=== PATIENT | female | born 1995 ===

== ENCOUNTER 2018-03-04 00:43 | Emergency (ER) | payer BC ==
[2018-03-04 01:03] VITALS: BP 113/74; PULSE 62; RESP 18; TEMP 98; O2SAT 100
--- NOTE | 2018-03-04 02:04 | ED PDOC ---
HPI: Abdomen Time Seen by Provider: 03/04/18 00:56 Chief Complaint (Nursing): Abdominal Pain Chief Complaint (Provider): abdominal pain History Per: Patient History/Exam Limitations: no limitations Onset/Duration Of Symptoms: Days (x3 months) Current Symptoms Are (Timing): Still Present Location Of Pain/Discomfort: Other (lower) Quality Of Discomfort: Cramping Associated Symptoms: Nausea. denies: Fever, Chills, Vomiting, Diarrhea, Loss Of Appetite, Urinary Symptoms Additional Complaint(s): Gloria Bledsoe is a 22 year old female, with a past medical history of cholecystectomy, who presents to the emergency department complaining of a crampy lower abdominal pain associated with nausea onset for x3 months. Patient states pain is similar to menstrual cramps. She reports her LMP was x2 weeks ago and has a control implant. She denies any fever, chills, vomiting, diarrhea, loss of appetite, vaginal bleeding, vaginal discharge or urinary symptoms. No further medical complaints. PMD: None provided. Abnormal Vaginal Bleeding: No Last Menstral Period: x2 weeks ago Past Medical History Reviewed: Historical Data, Nursing Documentation, Vital Signs Vital Signs: Last Vital Signs Temp 98 F 03/04/18 01:00 Pulse 62 03/04/18 01:00 Resp 18 03/04/18 01:00 BP 113/74 03/04/18 01:00 Pulse Ox 100 03/04/18 02:05 - Medical History PMH: Migraine - Surgical History Surgical History: Cholecystectomy - Family History Family History: States: Unknown Family Hx - Immunization History Hx Tetanus Toxoid Vaccination: Yes Hx Influenza Vaccination: Yes Hx Pneumococcal Vaccination: No - Home Medications Home Medications: Ambulatory Orders Medication Instructions Recorded Acetaminophen [Tylenol] 650 mg PO Q4 PRN #0 tab 04/24/14 Multivitamin and [id number] 1 tab PO DAILY #30 tab 04/24/14 [] No Known Home Med 08/21/16 - Allergies Allergies/Adverse Reactions: Allergies Allergy/AdvReac Type Severity Reaction Status Date / Time No Known Allergies Allergy Verified 08/21/16 17:33 Review of Systems ROS Statement: Except As Marked, All Systems Reviewed And Found Negative Constitutional: Negative for: Fever, Chills Gastrointestinal: Positive for: Nausea, Abdominal Pain (lower). Negative for: Vomiting, Diarrhea Genitourinary Female: Negative for: Dysuria, Frequency, Vaginal Discharge, Vaginal Bleeding Physical Exam - Reviewed Nursing Documentation Reviewed: Yes Vital Signs Reviewed: Yes - Physical Exam Appears: Positive for: Well, Non-toxic, No Acute Distress Head Exam: Positive for: ATRAUMATIC, NORMAL INSPECTION, NORMOCEPHALIC Skin: Positive for: Normal Color, Warm, DRY Eye Exam: Positive for: EOMI, Normal appearance, PERRL ENT: Positive for: Normal ENT Inspection Neck: Positive for: Normal, Painless ROM Cardiovascular/Chest: Positive for: Regular Rate, Rhythm Respiratory: Positive for: CNT, Normal Breath Sounds Gastrointestinal/Abdominal: Positive for: Normal Exam, Soft. Negative for: Tenderness Pelvic Exam: Positive for: External Exam Normal, Speculum Exam Normal, Bimanual Exam Normal, No Cerv. Motion Tender, Active Bleeding, Other (WELDING ENGINEER was present during the entire exam. ) Back: Positive for: Normal Inspection Extremity: Positive for: Normal ROM Neurologic/Psych: Positive for: Alert, Oriented - ECG O2 Sat by Pulse Oximetry: 100 (RA) Pulse Ox Interpretation: Normal Medical Decision Making Medical Decision Making: Time: 00:56 Initial Impression: Pelvic pain Initial Plan: --Urine dipstick --Urine --Reevaluation Uhcg (-) Udip (-) nitartes/leuks 02:00 Pelvic exam performed and was normal. Patient instructed to follow-up with her neighborhood planner in 1-2 days without fail. Return to the emergency room at any time for any new or worsening symptoms. Patient states she fully agrees with and understands discharge instructions. States that she agrees with the plan and disposition. Verbalized and repeated discharge instructions and plan. I have given the patient opportunity to ask any additional questions. ----- Scribe Attestation: Documented by Supa Dickinson, acting as a scribe for Jesica Bledsoe PA-C. Provider Scribe Attestation: All medical record entries made by the Scribe were at my direction and personally dictated by me. I have reviewed the chart and agree that the record accurately reflects my personal performance of the history, physical exam, medical decision making, and the department course for this patient. I have also personally directed, reviewed, and agree with the discharge instructions and disposition. Disposition - Clinical Impression Clinical Impression: Pelvic pain - Patient ED Disposition Is Patient to be Admitted: No Counseled Patient/Family Regarding: Studies Performed, Diagnosis, Need For Followup - Disposition Disposition: Routine/Home Disposition Time: 02:00 Condition: STABLE Additional Instructions: Thank you for letting us take care of you today. You were treated for pelvic pain. The emergency medical care you received today was directed at your acute symptoms. Return to the Emergency Department if your symptoms worsen, do not improve, or if you have any other problems. Please contact your neighborhood planner in 2 days for re-evaluation and follow up. Bring any paperwork you were given at discharge with you along with any medications you are taking to your follow up visit. Our treatment cannot replace ongoing medical care by a primary care provider (PCP) outside of the emergency department. Thank you for allowing the [facility] team to be part of your care today. Instructions: Chronic Pelvic Pain (DC) Forms: [employer] (Telugu)
== END 2018-03-04 02:15 | disposition home or self-care (01) ==
LOC: H.ER 00:43
DX: R10.2 Pelvic and perineal pain (principal)

== ENCOUNTER 2018-03-29 23:08 | Emergency (ER) | payer BC ==
[2018-03-29 23:20] VITALS: BP 123/77; PULSE 65; RESP 18; TEMP 98.7; O2SAT 96
--- NOTE | 2018-03-30 00:19 | ED PDOC ---
HPI: Allergic Reaction Time Seen by Provider: 03/29/18 23:26 Chief Complaint (Nursing): Abnormal Skin Integrity Chief Complaint (Provider): rash History Per: Patient History/Exam Limitations: no limitations Onset/Duration Of Symptoms: Days (x10) Current Symptoms Are (Timing): Still Present Possible Cause: Unknown Associated Symptoms: Skin Rash Additional Complaint(s): Patient reports acute onset of scattered rash to her abdomen, breasts and groin , ongoing for 10 days. She reports associated itchiness and redness. Otherwise: (-) fever, (-) chills, (-) URI, (-) facial/tongue/lip swelling, (-) SOB, (-) tick bite, (-) new medicine/foods, (-) changes to soap/lotions, (-) environmental factors - she did not visit the park. Past Medical History Reviewed: Historical Data, Nursing Documentation, Vital Signs Vital Signs: Last Vital Signs Temp 98.7 F 03/29/18 23:18 Pulse 65 03/29/18 23:18 Resp 18 03/29/18 23:18 BP 123/77 03/29/18 23:18 Pulse Ox 96 03/29/18 23:18 - Medical History PMH: Migraine - Surgical History Surgical History: Cholecystectomy - Family History Family History: States: Unknown Family Hx - Social History Current smoker - smoking cessation education provided: No Ex-Smoker (has not smoked in the last 12 months): Yes Alcohol: > 2 Drinks/Day Drugs: Cannabis, Cocaine - Immunization History Hx Tetanus Toxoid Vaccination: Yes Hx Influenza Vaccination: Yes Hx Pneumococcal Vaccination: No - Home Medications Home Medications: Ambulatory Orders Medication Instructions Recorded Acetaminophen [Tylenol] 650 mg PO Q4 PRN #0 tab 04/24/14 Multivitamin and [id number] 1 tab PO DAILY #30 tab 04/24/14 [] Cetirizine HCl [Zyrtec] 10 mg PO DAILY #30 capsule 03/30/18 Famotidine [Pepcid] 40 mg PO DAILY #20 tablet 03/30/18 Methylprednisolone [Medrol Dose 4 mg PO DAILY #21 mg 03/30/18 Pack (21 tabs)] - Allergies Allergies/Adverse Reactions: Allergies Allergy/AdvReac Type Severity Reaction Status Date / Time No Known Allergies Allergy Verified 08/21/16 17:33 Review of Systems ROS Statement: Except As Marked, All Systems Reviewed And Found Negative Constitutional: Negative for: Fever, Chills Genitourinary Female: Negative for: Dysuria, Hematuria Skin: Positive for: Rash (abdomen, breast and groin with itchiness and redness) Physical Exam - Reviewed Nursing Documentation Reviewed: Yes Vital Signs Reviewed: Yes - Physical Exam Comments: GENERAL APPEARANCE: Patient is awake, alert, oriented x 3, in no acute distress SKIN: (+) several erythematous, oval-shaped, flat lesions of varying sizes to abdomen, chest and groin. Otherwise (-) excoriations, (-) drainage, (-) crusting of lesions is present. HENT: (-) conjunctival injection, (-) chemosis. Oropharynx: clear (-) tongue or lip swelling, (-) tonsillar exudates, (-) erythema. Airway: patent (-) stridor, (-) hoarseness. Mucous membranes moist. Nares: Patent (-) rhinorrhea. NECK: (-) lymphadenopathy, (-) tenderness. CARDIOVASCULAR: Normal rate and rhythm. (-) murmur, (-) gallop. CHEST: (-) rales, (-) wheezing, (-) dyspnea, (-) stridor. Breath sounds equal bilaterally. ABDOMEN: Soft. (-) tenderness, (-) distention, (-) HSM. NEURO: Mental status: Patient is alert, oriented, and with normal strength and tone. - ECG O2 Sat by Pulse Oximetry: 96 (RA) Pulse Ox Interpretation: Normal - Progress ED Course And Treament: Based on history and exam, plan will be for outpatient follow up. Patient instructed to follow-up with referral provided in 1-2 days without fail. Advised to take medication as prescribed. Return to the emergency room at any time for any new or worsening symptoms. Patient states she fully agrees with and understands discharge instructions. States that she agrees with the plan and disposition. Verbalized and repeated discharge instructions and plan. I have given the patient opportunity to ask any additional questions. Disposition - Clinical Impression Clinical Impression: Rash - Patient ED Disposition Is Patient to be Admitted: No Counseled Patient/Family Regarding: Diagnosis, Need For Followup, Rx Given - Disposition Referrals: Santos Jacobsen MD [Staff Provider] - Disposition: Routine/Home Disposition Time: 00:00 Condition: STABLE Additional Instructions: Thank you for letting us take care of you today. You were treated for rash, likely allergic reaction. The emergency medical care you received today was directed towards the acute presenting symptoms. If you were prescribed any medication, please fill it and give as directed. It may take several days for your symptoms to resolve. Return to the Emergency Department at any time if symptoms worsen, do not improve, or if any other problems arise. Please contact your doctor in 2 days for re-evaluation and follow up / or call one of the physicians/clinics you have been referred to that are listed on the Patient Visit Information form that is included in your discharge packet. Bring any paperwork you were given at discharge with you along with any medications to your follow up visit. Our treatment cannot replace ongoing medical care by a primary care provider (PCP) outside of the emergency department. Thank you for allowing the [facility] team to be part of your care today. Prescriptions: Cetirizine HCl [Zyrtec] 10 mg PO DAILY #30 capsule Famotidine [Pepcid] 40 mg PO DAILY #20 tablet Methylprednisolone [Medrol Dose Pack (21 tabs)] 4 mg PO DAILY #21 mg Instructions: Skin Rash (DC) Forms: [employer] ([place])
== END 2018-03-30 00:36 | disposition home or self-care (01) ==
LOC: H.ER 23:08
DX: T78.40XA Allergy, unspecified, initial encounter (principal)